=== PATIENT | female | born 1960 | race Caucasian/White ===

== ENCOUNTER → 2018-10-28 15:24 | Outpatient (CLI) | payer OTHER, SELFPAY ==
--- NOTE | 2018-10-28 | DI.RAD.S_ITS ---
PROCEDURE: XR KNEE LT 3V INDICATIONS: LEFT KNEE PAIN TECHNIQUE: 3 views of the knee were acquired. COMPARISON: [facility], , KNEE 1-2 VIEWS LEFT, 10/25/2007, 11:31. FINDINGS: Bones: No fractures or dislocations. No suspicious bony lesions. There is mild to moderate tricompartmental joint space narrowing and periarticular osteophytes. Soft tissues: No joint effusion. Chondrocalcinosis. IMPRESSION: 1. Chondrocalcinosis. Differential diagnoses include CPPD, hypercalcemia and hyperparathyroidism. 2. Mild to moderate degenerative joint disease. Dictated by: Ravinder Brian M.D. on 10/28/2018 at 17:27 Approved by: Ravinder Brian M.D. on 10/28/2018 at 17:29
== END ==
PROVIDERS: PCP Family Medicine; Visit Provider Family Medicine
DX: M25.562 Pain in left knee (principal); M11.262 Other chondrocalcinosis, left knee; M17.12 Unilateral primary osteoarthritis, left knee
CPT/HCPCS: 73562

== ENCOUNTER → 2018-11-24 09:23 | Outpatient (CLI) | payer OTHER, SELFPAY ==
--- NOTE | 2018-11-24 | DI.MG.S_ITS ---
BILATERAL DIGITAL SCREENING MAMMOGRAM 3D/2D WITH CAD: 11/24/2018 CLINICAL: Routine screening. Family history of breast cancer. Comparison is made to exams dated: 11/25/2017 mammogram, 09/18/2015 mammogram, 03/14/2015 mammogram, and 02/28/2015 mammogram - [facility]. There are scattered fibroglandular elements in both breasts. Current study was also evaluated with a Computer Aided Detection (CAD) system. No significant masses, calcifications, or other findings are seen in either breast. There has been no significant interval change. IMPRESSION: NEGATIVE There is no mammographic evidence of malignancy. A 1 year screening mammogram is recommended. This exam was interpreted at Station ID: [id number]. NOTE: For mammograms, a report in lay terms will be sent to the patient. Approximately 15% of breast malignancies will not be visualized mammographically. In the management of a palpable breast mass, a negative mammogram must not discourage biopsy of a clinically suspicious lesion. Electronically Signed By: Felicitas sousa/darwin:11/24/2018 10:14:55 letter sent: Normal Exam ACR BI-RADS Category 1: Negative 3341F
== END ==
PROVIDERS: PCP Family Medicine; Visit Provider Family Medicine
DX: Z12.31 Encounter for screening mammogram for malignant neoplasm of breast (principal); Z80.3 Family history of malignant neoplasm of breast
CPT/HCPCS: 77063; 77067

== ENCOUNTER → 2018-12-03 15:35 | Outpatient (CLI) | payer OTHER, SELFPAY ==
--- NOTE | 2018-12-03 | DI.MRI.S_ITS ---
PROCEDURE: MR KNEE LT WO CON INDICATIONS: Pain in left knee TECHNIQUE: Noncontrast sagittal PD fast spin echo and T2 fast spin echo with fat saturation, sagittal 3-D FLASH with fat saturation; coronal T1 spin echo and PD fast spin echo with fat saturation, and axial PD fast spin echo with fat saturation through the knee. COMPARISON: [facility], MR, LOWER EXTREM. JNT WO CONTRAST, 11/08/2007, 9:31. FINDINGS: Image quality: Excellent. Menisci: Lateral meniscus appears intact. Marked truncation of the free margin of the body of the medial meniscus. There is also internal signal change which extends to the undersurface in keeping with tear. Cruciate ligaments: The anterior and posterior cruciate ligaments appear intact. Medial structures: The medial collateral ligament appears intact. Minimal semimembranosus insertional tendinopathy appears unchanged. Visualized portions of the pes anserinus tendons appear normal. No abnormal bursal fluid. Lateral structures: The lateral collateral ligament, long and short heads of the biceps femoris tendon appear intact. The popliteus tendon appears normal; the popliteofibular ligament appears intact. The posterosuperior and anteroinferior popliteomeniscal fascicles appear intact. The arcuate and fabellofibular ligaments appear intact, on either side of the lateral inferior geniculate artery. Iliotibial band appears normal. Anterior structures: Prepatellar and superficial infrapatellar subcutaneous edema/fluid. The quadriceps tendon intact. Mild diffuse patellar tendinopathy. Patellar alignment is normal. No femoral trochlear dysplasia or ventral trochlear prominence. No edema in the infrapatellar fat pad. Bones and cartilage: No focal marrow contusion or discrete low signal fracture line. Within the medial compartment, diffuse partial-thickness loss of femoral and tibial articular cartilage. No focal articular cartilage defect. Within the lateral compartment, intrasubstance signal change at the central weightbearing tibial cartilage without focal defect. There is diffuse partial thickness loss of the femoral cartilage. Within the patellofemoral compartment, near full thickness loss of the patellar articular cartilage diffusely with subchondral marrow signal changes. Femoral trochlear cartilage appears grossly intact. Joint space: Trace joint effusion. Small Hemphill's cyst measuring approximately 3 cm in the cephalocaudad dimension. No specific evidence of intra-articular loose body. IMPRESSION: Medial meniscal tear involving the body. This is mildly progressed since the prior study dated 11/08/07, with greater truncation of the free margin. Diffuse joint degeneration as above, although interval progression within the patellofemoral compartment. Small Hemphill's cyst, minimally increased in size. Unchanged minimal insertional semimembranosus tendinopathy. Dictated by: Bhupinder Izquierdo M.D. on 12/03/2018 at 16:36 Approved by: Bhupinder Izquierdo M.D. on 12/03/2018 at 16:47
== END ==
PROVIDERS: PCP Family Medicine; Visit Provider Family Medicine
DX: M25.562 Pain in left knee (principal); S83.242A Other tear of medial meniscus, current injury, left knee, initial encounter; M17.12 Unilateral primary osteoarthritis, left knee; M71.22 Synovial cyst of popliteal space [Baker], left knee
CPT/HCPCS: 73721

== ENCOUNTER → 2020-03-27 16:33 | Outpatient (CLI) | payer OTHER, SELFPAY ==
--- NOTE | 2020-03-27 | DI.MG.S_ITS ---
BILATERAL DIGITAL SCREENING MAMMOGRAM 3D/2D WITH CAD: 03/27/2020 CLINICAL: Routine screening. Family history of breast cancer. Comparison is made to exams dated: 11/24/2018 mammogram, 11/25/2017 mammogram, 09/18/2015 mammogram, and 02/28/2015 mammogram - [facility]. There are scattered fibroglandular elements in both breasts. Current study was also evaluated with a Computer Aided Detection (CAD) system. There is a focal asymmetry with grouped punctate calcifications in the left breast at 12 o'clock posterior depth. No other significant masses, calcifications, or other findings are seen in either breast. IMPRESSION: INCOMPLETE: NEEDS ADDITIONAL IMAGING EVALUATION The focal asymmetry in the left breast is indeterminate. Spot magnification views as well as additional views with possible ultrasound are recommended. This exam was interpreted at Station ID: [id number]. NOTE: For mammograms, a report in lay terms will be sent to the patient. Approximately 15% of breast malignancies will not be visualized mammographically. In the management of a palpable breast mass, a negative mammogram must not discourage biopsy of a clinically suspicious lesion. Electronically Signed By: Felicitas sousa/darwin:03/28/2020 08:55:07 letter sent: Additional Imaging Needed ACR BI-RADS Category 0: Incomplete 3340F
== END ==
PROVIDERS: PCP Family Medicine; Referring Provider Family Medicine; Visit Provider Family Medicine
DX: Z12.31 Encounter for screening mammogram for malignant neoplasm of breast (principal); Z80.3 Family history of malignant neoplasm of breast
CPT/HCPCS: 77063; 77067

== ENCOUNTER → 2020-04-24 15:01 | Outpatient (CLI) | payer OTHER, SELFPAY ==
--- NOTE | 2020-04-24 15:13 | DI.MG.S_ITS ---
Patient Name: YANI WIGGINS date: 1960 Sex: F Attending Physician: Tray Indications: Date: 04/24/2020 15:04 At the request of: AGAPITO BLISS Procedure: MM special view LT UNILATERAL LEFT DIGITAL DIAGNOSTIC MAMMOGRAM 3D/2D WITH ADDITIONAL VIEWS: 04/24/2020 CLINICAL: Additional evaluation requested from prior study. Comparison is made to exams dated: 03/27/2020 mammogram, 11/24/2018 mammogram, 11/25/2017 mammogram, 09/18/2015 mammogram, and 03/14/2015 mammogram - [facility]. There are scattered fibroglandular elements in left breast. There is a 0.5 cm oval focal asymmetry with grouped punctate calcifications in the left breast at 1 o'clock posterior depth. This may correspond to the focal asymmetry seen in 2014 that was described as 3:00 o'clock. This appears more prominent and the group calcifications are new. No other significant masses or calcifications are seen in the breast. IMPRESSION: INCOMPLETE: NEEDS ADDITIONAL IMAGING EVALUATION The 0.5 cm oval focal asymmetry in the left breast is indeterminate. A targeted ultrasound is recommended and will immediately follow. This exam was interpreted at Station ID: [id number]. NOTE: For mammograms, a report in lay terms will be sent to the patient. Approximately 15% of breast malignancies will not be visualized mammographically. In the management of a palpable breast mass, a negative mammogram must not discourage biopsy of a clinically suspicious lesion. Electronically Signed By: Alonso Giron M.D. slc/:04/24/2020 16:44:47 Continued Report - Page 2 of 2 Patient Name: YANI WIGGINS date: 1960 Sex: F Attending Physician: Tray Indications: Date: 04/24/2020 15:04 At the request of: AGAPITO BLISS Procedure: MM special view LT ACR BI-RADS Category 0: Incomplete 3340F
--- NOTE | 2020-04-24 15:52 | DI.US.S_ITS ---
Patient Name: YANI WIGGINS date: 1960 Sex: F Attending Physician: Tray Indications: Date: 04/24/2020 15:46 At the request of: AGAPITO BLISS Procedure: US breast LT limited LIMITED ULTRASOUND OF LEFT BREAST: 04/24/2020 CLINICAL: Patient returns today to evaluate a focal asymmetry in the left breast. Comparison is made to exams dated: 04/24/2020 mammogram, 03/27/2020 mammogram, 11/24/2018 mammogram, 03/14/2015 mammogram, 03/14/2015 ultrasound, and 09/18/2015 mammogram - [facility]. Color flow and real-time ultrasound of the left breast 12-1 o'clock region were performed. Ferris scale images of the real-time examination were reviewed. There is a 0.9 cm x 0.5 cm x 0.4 cm oval cyst in the left breast at 12 o'clock posterior depth 4 cm from the nipple. This oval cyst is hypoechoic with a well-defined boundary and no posterior acoustic shadowing or enhancement. This correlates with mammography findings. There are related micro calcifications. Color flow imaging demonstrates that there is no vascularity present. IMPRESSION: PROBABLY BENIGN The 0.9 cm x 0.5 cm x 0.4 cm oval cyst in the left breast is most consistent with a complicated cyst and is probably benign. A follow-up mammogram and an ultrasound in 6 months is recommended to demonstrate stability. Exam results conveyed to the patient. This exam was interpreted at Station ID: [id number]. Electronically Signed By: Alonso Giron M.D. slc/:04/24/2020 16:37:16 letter sent: Followup Recommended Ultrasound BI-RADS: 3 Probably benign Continued Report - Page 2 of 2 Patient Name: YANI WIGGINS date: 1960 Sex: F Attending Physician: Tray Indications: Date: 04/24/2020 15:46 At the request of: AGAPITO BLISS Procedure: US breast LT limited
== END ==
PROVIDERS: PCP Family Medicine; Referring Provider Family Medicine; Visit Provider Family Medicine
DX: R92.8 Other abnormal and inconclusive findings on diagnostic imaging of breast (principal); R92.1 Mammographic calcification found on diagnostic imaging of breast; N60.02 Solitary cyst of left breast
CPT/HCPCS: 76642; 77065; G0279

== ENCOUNTER → 2020-10-25 09:06 | Outpatient (CLI) | payer OTHER, SELFPAY ==
--- NOTE | 2020-10-25 | DI.MG.S_ITS ---
UNILATERAL LEFT DIGITAL DIAGNOSTIC MAMMOGRAM 3D/2D SHORT-TERM FOLLOW-UP: 10/25/2020 CLINICAL: Short term follow up for the left breast. Comparison is made to exams dated: 04/24/2020 ultrasound, 04/24/2020 mammogram, and 03/27/2020 mammogram - [facility]. There are scattered fibroglandular elements in left breast. There is an oval low density focal asymmetry with an indistinct margin and grouped fine calcifications in the left breast at 1 o'clock posterior depth. This is increased in size. No other significant masses or calcifications are seen in the breast. IMPRESSION: INCOMPLETE: NEEDS ADDITIONAL IMAGING EVALUATION The oval low density focal asymmetry in the left breast is indeterminate. An ultrasound is recommended. Ultrasound will be performed immediately following the current exam. This exam was interpreted at Station ID: [id number]. NOTE: For mammograms, a report in lay terms will be sent to the patient. Approximately 15% of breast malignancies will not be visualized mammographically. In the management of a palpable breast mass, a negative mammogram must not discourage biopsy of a clinically suspicious lesion. Electronically Signed By: Johnathan José M.D. ddp/:10/25/2020 09:45:56 ACR BI-RADS Category 0: Incomplete 3340F
--- NOTE | 2020-10-25 | DI.US.S_ITS ---
ULTRASOUND OF LEFT BREAST: 10/25/2020 CLINICAL: 6 month follow-up of cysts. Comparison is made to exams dated: 10/25/2020 mammogram, 04/24/2020 ultrasound, 04/24/2020 mammogram, 03/27/2020 mammogram, 11/24/2018 mammogram, and 11/25/2017 mammogram - [facility]. Color flow and real-time ultrasound of the left breast were performed on the areas of interest. There is a 0.6 cm x 0.3 cm x 0.5 cm cluster of oval cysts in the left breast at 2 o'clock middle depth. This cluster of oval cysts is hypoechoic with internal echoes and posterior acoustic enhancement. This correlates with mammography findings. Color flow imaging demonstrates that there is no vascularity present. The previously described 1 cm x 0.3 cm x 0.5 cm oval isoechoic region with indistinct margins in the left breast at 12 o'clock posterior depth is not significantly changed. Findings likely represent fibroglandular tissue. IMPRESSION: PROBABLY BENIGN The 0.6 cm x 0.3 cm x 0.5 cm cluster of oval cysts in the left breast at 2 o'clock middle depth is probably benign. Follow-up mammogram and ultrasound in 6 months is recommended. The 1 cm x 0.3 cm x 0.5 cm oval area of fibroglandular tissue in the left breast at 12 o'clock posterior depth is benign. A follow-up mammogram and an ultrasound in 6 months are recommended to demonstrate stability. This exam was interpreted at Station ID: [id number]. Electronically Signed By: Johnathan varela/:10/25/2020 11:42:55 letter sent: Followup Recommended Ultrasound BI-RADS: 3 Probably benign
== END ==
PROVIDERS: PCP Family Medicine; Referring Provider Family Medicine; Visit Provider Family Medicine
DX: R92.8 Other abnormal and inconclusive findings on diagnostic imaging of breast (principal); N60.02 Solitary cyst of left breast
CPT/HCPCS: 76642; 77065; G0279

== ENCOUNTER → 2021-02-15 08:34 | Outpatient (CLI) | payer OTHER, SELFPAY ==
[2021-02-15 10:42] LABS: COVID19 -Nasal RAPID Negative (Negative)
== END ==
PROVIDERS: PCP Family Medicine; Visit Provider Specialist
DX: Z20.822 Contact with and (suspected) exposure to COVID-19 (principal)
CPT/HCPCS: 87635; C9803

== ENCOUNTER 2021-02-18 11:52 | Day surgery (SDC) | payer OTHER, SELFPAY ==
[2021-02-18] VITALS (7 sets, daily range): BP systolic 110–140; BP diastolic 44–75; PULSE 62–74; RESP 11–16; TEMP 36.2–36.7; O2SAT 63–99; BMI 28.2
--- NOTE | 2021-02-18 12:55 | PM.HP.1 ---
History of Present Illness History of Present Illness Date Patient Seen: 02/18/21 Time Patient Seen: 12:55 Chief complaint: DX COLONOSCOPY Narrative: screening colonoscopy. No family history or gi symptoms of concern. Retire [employer] Patient History Surgical History (Updated 02/18/21 @ 12:36 by Linda Gill RN) H/O: hysterectomy Family & Social History Social History: household members spouse Tobacco & Substance use: Smoking Status Never smoker alcohol intake current alcohol intake frequency a few times a week Substance Use Type does not use Meds Home Medications and Allergies Home Medications Medication Instructions Recorded Confirmed Type multivitamin 1 tab PO DAILY 02/18/21 02/18/21 History Allergies Allergy/AdvReac Type Severity Reaction Status Date / Time Sulfa (Sulfonamide Allergy Intermediate HIVES Verified 02/18/21 12:35 Antibiotics) Review of Systems Review of Systems ROS: Yes All systems reviewed with the patient and are negative except as otherwise documented Exam Vital Signs (past 8 hours): - 02/18/21 12:12 Temperature 97.1 F L Pulse Rate 68 Respiratory Rate 16 Blood Pressure 140/71 Pulse Oximetry 99 Oxygen Delivery Method Room Air Const General: cooperative and healthy appearing Nutritional Appearance: average body habitus Orientation: alert and awake HENMT Head: normal to inspection Nose: external nose normal Face and sinus: normal facial exam Eyes Sclera: sclerae normal Neck Neck: trachea midline Chest Chest: normal inspection of the chest Resp Effort & Inspection: normal respiratory effort and able to speak in complete sentences Auscultation: clear to auscultation bilaterally Cardio Rate: regular rate Rhythm: regular rhythm GI Inspection: normal to inspection Neuro General: patient alert and patient oriented x3 Assessment & Plan Assessment & Plan narrative: colon cancer screeing with colonoscopy using moderate sedation COVID-19 COVID-19 status: Negative Time Spent With Patient Time with patient: less than 15 minutes
[2021-02-18] MEDS: LACTATED RINGERS 1,000 ML 100 ML IV (13:00)
[2021-02-18] MEDS: fentaNYL 250 MCG/5 ML INJ IV (13:09)
[2021-02-18] MEDS: MIDAZOLAM 5 MG/5 ML VIAL IV (13:16)
--- NOTE | 2021-02-18 13:22 | PM.OP.ENDO ---
Operative Date/Time/Diagnoses Date of procedure: 02/18/21 Time of procedure: 13:22 Pre-op diagnosis: screening colonoscopy Post-op diagnosis: same Procedure & Clinicians Study performed: colonoscopy with moderate sedation Same procedure as scheduled: Yes Indications: colon cancer screening Surgeon: Ghislaine Hathaway Procedure Notes SCOAP/Timeout: done Procedure in detail: Preop diagnosis: Colon cancer screening Postop diagnosis: Same Operative procedure: Screening colonoscopy with moderate sedation Surgeon: Jolie Hathaway MD Findings: Normal mucosa, no polyps, no diverticulosis Procedure: Patient placed in the lateral position. Rectal exam is performed showing normal tone no masses. Colonoscope was inserted into the rectum and advanced to the ileocecal valve with minimal difficulty. Insufflation and extraction of the scope to include a retroflexed in the rectum had the above findings Impression: No polyps, no diverticulosis. Plan: Repeat colonoscopy 10 years unless otherwise indicated change in family history or clinical condition Scope withdrawal time: 4 Sedation minutes: 17 Specimen(s): none sent Complications: none Impression: no polyps, no diverticulosis Post-procedure Recommendations: Colonscopy in 10 years Follow up: as needed Disposition: PACU
--- NOTE | 2021-02-18 14:02 | SUR.PHASEI ---
Slow to wake up, tolerated juice, no pain, to OPD, stable.
== END 2021-02-18 15:00 | disposition home or self-care (01) ==
PROVIDERS: PCP Family Medicine; Referring Provider Surgery; Visit Provider Surgery
PROC: 0DJD8ZZ Inspection of Lower Intestinal Tract, Via Natural or Artificial Opening Endoscopic (ICD-10-PCS; CPT 45378; principal; 2021-02-18 13:00)
DX: Z12.11 Encounter for screening for malignant neoplasm of colon (principal)
CPT/HCPCS: 45378; 99152; J2250; J3010

== ENCOUNTER → 2021-02-22 14:17 | Outpatient (CLI) | payer OTHER, SELFPAY ==
--- NOTE | 2021-02-22 14:24 | DI.RAD.S_ITS ---
PROCEDURE: XR KNEE RT 3V INDICATIONS: right knee pain. Pickleball injury TECHNIQUE: 3 views of the knee were acquired. COMPARISON: [facility], CR, XR KNEE LT 3V, 10/28/2018, 15:29. FINDINGS: Bones: No fractures or dislocations. No suspicious bony lesions. Lateral and patellofemoral compartmental joint space narrowing with small marginal osteophyte present. Soft tissues: No joint effusion. No suspicious soft tissue calcifications. IMPRESSION: Osteoarthritis and small joint effusion without fracture or subluxation. Dictated by: Chester Espitia M.D. on 02/22/2021 at 14:04 Approved by: Chester Espitia M.D. on 02/22/2021 at 14:05
== END ==
PROVIDERS: PCP Family Medicine; Referring Provider Family Medicine; Visit Provider Family Medicine
DX: M25.561 Pain in right knee (principal); S89.91XA Unspecified injury of right lower leg, initial encounter; M17.11 Unilateral primary osteoarthritis, right knee; M25.461 Effusion, right knee; X58.XXXA Exposure to other specified factors, initial encounter
CPT/HCPCS: 73562

== ENCOUNTER → 2022-01-07 16:08 | Outpatient (CLI) | payer OTHER, SELFPAY ==
--- NOTE | 2022-01-07 | DI.RAD.S_ITS ---
PROCEDURE: XR KNEE RT 3V INDICATIONS: M76.891, M23.90 TECHNIQUE: 3 views of the knee were acquired. COMPARISON: [facility], CR, XR KNEE RT 3V, 02/22/2021, 14:34. FINDINGS: Bones: No acute fracture or dislocation. There is moderate right medial femorotibial compartment narrowing and small tricompartmental osteophytes. Soft tissues: No joint effusion. No suspicious soft tissue calcifications. IMPRESSION: Mild osteoarthritis of the right knee. No acute radiographic findings. Dictated by: Felicitas Tobar M.D. on 01/07/2022 at 16:42 Approved by: Felicitas Tobar M.D. on 01/07/2022 at 16:45
--- NOTE | 2022-01-07 | DI.RAD.S_ITS ---
PROCEDURE: XR HIP W PEL IF DONE RT 2V INDICATIONS: M76.891, M23.90 TECHNIQUE: AP pelvis with lateral view(s) of the right hip(s). COMPARISON: [facility], , HIP 2V RIGHT, 12/09/2013, 16:19. FINDINGS: Bones: No fractures or dislocations. Pelvic ring appears intact. No suspicious bony lesions. Moderate bilateral degenerative hip joint space narrowing. Minimal periarticular osteophytes. No erosions. Soft tissues: The visualized bowel gas pattern is normal. No suspicious soft tissue calcifications. IMPRESSION: Moderate bilateral hip osteoarthritis. Dictated by: Yudi Espinosa M.D. on 01/07/2022 at 16:39 Approved by: Yudi Espinosa M.D. on 01/07/2022 at 16:40
== END ==
PROVIDERS: PCP Family Medicine; Referring Provider Family Medicine; Visit Provider Family Medicine
DX: M76.891 Other specified enthesopathies of right lower limb, excluding foot (principal); M23.90 Unspecified internal derangement of unspecified knee; M17.11 Unilateral primary osteoarthritis, right knee; M16.0 Bilateral primary osteoarthritis of hip
CPT/HCPCS: 73502; 73562

== ENCOUNTER → 2022-11-28 | Outpatient (CLI) | payer OTHER, SELFPAY ==
--- NOTE | 2022-11-28 | DI.RAD.S_ITS ---
Bone Density Report Name: YANI WIGGINS Age: 62 Sex: Female Ethnicity: White Date of : 1960 Indication: postmenopausal; screening for osteoporosis; Referring Provider: AGAPITO BLISS Study: Bone densitometry was performed. Exam Date: November 28, 2022 Accession number: [id number] Bone Density: Region BMD T-score Z-score Classification AP Spine(L1-L4) 0.927 -1.1 0.4 Osteopenia Femoral Neck (Left) 0.846 0.0 1.3 Normal Total Hip (Left) 1.005 0.5 1.6 Normal Femoral Neck (Right) 0.761 -0.8 0.6 Normal Total Hip (Right) 0.944 0.0 1.1 Normal Total Hip Mean 0.975 0.3 1.4 Normal World Health Organization criteria for BMD impression classify patients as: Normal (T-score at or above -1.0), Osteopenia (T-score between -1.0 and -2.5), or Osteoporosis (T-score at or below -2.5). 10-year Fracture Risk(1): Major Osteoporotic Fracture 7.1% Hip Fracture 0.3% Reported Risk Factors: [place] (), Neck BMD=0.761, BMI=28.9 (1) FRAX(R) Version 3.08. Fracture probability calculated for an untreated patient. Fracture probability may be lower if the patient has received treatment. Previous Exams: -- Region Exam Age BMD T-score BMD Change BMD Change Date g/cm2 vs Baseline vs Previous -- AP Spine (L1-L4) 11/28/2022 62 0.927 -1.1 -0.084 (-8.3%)# -0.084 (-8.3%)# 04/12/2009 49 1.010 -0.3 Total Hip(Left) 11/28/2022 62 1.005 0.5 0.022 (2.3%)# 0.022 (2.3%)# 04/12/2009 49 0.983 0.3 Total Hip(Right) 11/28/2022 62 0.944 0.0 -0.041 (-4.2%)# -0.041 (-4.2%)# 04/12/2009 49 0.986 0.4 -- *Denotes significance at 95% confidence level, LSC for AP Spine = 0.022 g/cm2, LSC for Total Hip = 0.027 g/cm2 # Denotes dissimilar scan types or analysis methods Impression: The patient has low bone mass, based on the Total Spine T-score. The patient has an estimated ten-year risk of hip fracture of 0.3% and an estimated ten-year risk of major fracture of 7.1%, based on the WHO FRAX algorithm. No significant bone loss was observed. Discussion: BONE DENSITY IS LOW AT ONE OR MORE SKELETAL SITES. This patient's lowest T-score is low at one or more skeletal sites. It meets the World Health Organization's (WHO) criteria for low bone mass (T-score between -1.0 and -2.5). The patient's 10-year risk of fracture as calculated by FRAX is less than the threshold where pharmacological therapy is recommended by the National Osteoporosis Foundation (NOF). However, all treatment decisions require clinical judgment and consideration of individual patient factors, including patient preferences, comorbidities, previous drug use, risk factors not captured in the FRAX model (e.g., frailty, falls, vitamin D deficiency, increased bone turnover, interval significant decline in bone density) and possible under or overestimation of fracture risk by FRAX. The patient should follow a healthful lifestyle (good nutrition with adequate calcium and vitamin D, and appropriate weight-bearing exercise). Follow-Up: Consider repeating this study in 2 to 3 years to reassess this patient's status, or sooner if there is some new clinical indication. Reported by: GORGE KONG M.D. on 11/28/2022 2:51:00 PM.
== END ==
LOC: RAD 14:29
PROVIDERS: PCP Family Medicine; Referring Provider Family Medicine; Visit Provider Family Medicine
DX: Z13.820 Encounter for screening for osteoporosis (principal); Z78.0 Asymptomatic menopausal state; M85.88 Other specified disorders of bone density and structure, other site
CPT/HCPCS: 77080

== ENCOUNTER → 2022-12-01 08:23 | Outpatient (CLI) | payer OTHER, SELFPAY ==
--- NOTE | 2022-12-01 | DI.US.S_ITS ---
LIMITED ULTRASOUND OF LEFT BREAST: 12/01/2022 CLINICAL: 6 (24+) month follow-up of cysts. Comparison is made to exams dated: 12/01/2022 mammogram, 10/25/2020 ultrasound, 10/25/2020 mammogram, 04/24/2020 ultrasound, and 04/24/2020 mammogram - [facility]. Real-time and continuous wave Doppler ultrasound of the left breast were performed. IMPRESSION: NEGATIVE There is no sonographic evidence of malignancy. There is no abnormality seen in the left breast to correspond with the mammography finding and previous ultrasound finding. Return to annual mammogram screening schedule is recommended. This exam was interpreted at Station ID: [id number]. Electronically Signed By: Roderick Mitchell M.D. lc/:12/01/2022 09:48:15 letter sent: Normal Exam Ultrasound BI-RADS: 1 Negative
--- NOTE | 2022-12-01 | DI.MG.S_ITS ---
BILATERAL DIGITAL DIAGNOSTIC MAMMOGRAM 3D/2D: 12/01/2022 CLINICAL: Late short follow up, due bilateral. Family history of breast cancer. Comparison is made to exams dated: 10/25/2020 mammogram, 04/24/2020 mammogram, 03/27/2020 mammogram, 11/25/2017 mammogram, and 11/24/2018 mammogram - [facility]. There are scattered areas of fibroglandular density in both breasts (category b / 25%-50% glandular tissue). There is a stable oval low density focal asymmetry with an indistinct margin in the left breast at 1 o'clock posterior depth. Prior calcifications are less conspicuous. No other significant masses, calcifications, or other findings are seen in either breast. IMPRESSION: INCOMPLETE: NEEDS ADDITIONAL IMAGING EVALUATION The stable oval low density focal asymmetry in the left breast is indeterminate. An ultrasound is recommended. Based on the Tyrer Cuzick model (a risk assessment model) the patient's lifetime risk is 17.5% and her 10 year risk is 7.5%. According to the ACR, ACS, and NCCN guidelines, an annual breast MRI exam along with mammogram is recommended if the patient's lifetime risk is 20% or greater. This exam was interpreted at Station ID: [id number]. NOTE: For mammograms, a report in lay terms will be sent to the patient. Approximately 15% of breast malignancies will not be visualized mammographically. In the management of a palpable breast mass, a negative mammogram must not discourage biopsy of a clinically suspicious lesion. Electronically Signed By: Roderick Mitchell M.D. lc/:12/01/2022 09:46:06 ACR BI-RADS Category 0: Incomplete 3340F
== END ==
PROVIDERS: PCP Family Medicine; Referring Provider Family Medicine; Visit Provider Family Medicine
DX: R92.8 Other abnormal and inconclusive findings on diagnostic imaging of breast (principal); N60.02 Solitary cyst of left breast
CPT/HCPCS: 76642; 77066; G0279

== ENCOUNTER → 2024-02-25 12:52 | Outpatient (CLI) | payer OTHER, SELFPAY ==
--- NOTE | 2024-02-25 12:53 | DI.MG.S_ITS ---
BILATERAL DIGITAL SCREENING MAMMOGRAM 3D/2D WITH CAD: 02/25/2024 CLINICAL: Routine screening. Family history of breast cancer. Comparison is made to exams dated: 12/01/2022 mammogram, 03/27/2020 mammogram, and 11/24/2018 mammogram - [facility]. There are scattered areas of fibroglandular density in both breasts (category b / 25%-50% glandular tissue). Current study was also evaluated with a Computer Aided Detection (CAD) system. No significant masses, calcifications, or other findings are seen in either breast. There has been no significant interval change. IMPRESSION: NEGATIVE There is no mammographic evidence of malignancy. A 1 year screening mammogram is recommended. Based on the Tyrer Cuzick model (a risk assessment model) the patient's lifetime risk is 16.6% and her 10 year risk is 7.6%. According to the ACR, ACS, and NCCN guidelines, an annual breast MRI exam along with mammogram is recommended if the patient's lifetime risk is 20% or greater. This exam was interpreted at Station ID: [id number]. NOTE: For mammograms, a report in lay terms will be sent to the patient. Approximately 15% of breast malignancies will not be visualized mammographically. In the management of a palpable breast mass, a negative mammogram must not discourage biopsy of a clinically suspicious lesion. Electronically Signed By: Roderick coronado/darwin:02/25/2024 14:28:05 letter sent: Normal Exam ACR BI-RADS Category 1: Negative 3341F
== END ==
PROVIDERS: PCP Family Medicine; Referring Provider Family Medicine; Visit Provider Family Medicine
DX: Z12.31 Encounter for screening mammogram for malignant neoplasm of breast (principal); R92.323 Mammographic fibroglandular density, bilateral breasts
CPT/HCPCS: 77063; 77067

== ENCOUNTER → 2024-03-15 15:04 | Outpatient (CLI) | payer OTHER, SELFPAY ==
[2024-03-15 15:59] LABS: Add Manual Diff / Slide Review NO; Basophils Absolute Auto 0 /uL (0-100); Basophils Percent Auto 0.4 % (0-2); Eosinophils Absolute Auto 200 /uL (0-450); Eosinophils Percent Auto 2.6 % (2-4); Hematocrit 40.9 % (36-46); Hemoglobin 13.9 g/dL (12.0-16.0); Lymphocytes Absolute Auto 2200 /uL (1100-4500); Lymphocytes Percent Auto 23.6 % (25-40); Mean Corpuscular Hemoglobin 28.1 PG (26-34); Mean Corpuscular Volume 82.7 fL (80-100); Monocytes Absolute Auto 600 /uL (0-900); Monocytes Percent Auto 6.8 % (3-14); Neutrophils Absolute Auto 6300 /uL (1500-7000); Neutrophils Percent Auto 66.6 % (50-75); Platelet Count 296 X10^3/uL (150-400); Red Blood Cell Count 4.95 X10^6/uL (4.0-5.2); Red Cell Distribution Width 13.4 % (11.6-14.8); White Blood Cell Count 9.5 X10^3/uL (4.5-11.0)
[2024-03-15 17:03] LABS: Alanine Aminotransferase 18 IU/L (<35); Albumin 4.5 g/dL (3.5-5.0); Albumin Globulin Ratio 1.5 (1.0-2.8); Alkaline Phosphatase 85 U/L (38-126); Aspartate Aminotransferase 23 IU/L (14-36); BUN Creatinine Ratio 25.3 (6-22); Bilirubin Total 0.4 mg/dL (0.2-1.3); Blood Urea Nitrogen 21 mg/dL (7-17); Carbon Dioxide 28 mmol/L (22-32); Chloride 105 mmol/L (98-107); Estimated Glomerular Filt Rate > 60 mL/min (>60); Globulin 3.1 g/dL (1.7-4.1); Glucose 83 mg/dL (80-110); HEMOLYSIS < 15 (0-50); Potassium 4.7 mmol/L (3.4-5.1); Sodium 140 mmol/L (137-145); Total Protein 7.6 g/dL (6.3-8.2)
[2024-03-15 17:38] LABS: Ferritin 82 ng/mL (11-264)
[2024-03-15 18:02] LABS: Iron 68 ug/dL (37-170)
[2024-03-15 18:21] LABS: Free T4, Direct Thyroxine 0.95 ng/dL (0.78-2.19)
[2024-03-15 18:54] LABS: Vitamin B12 314 pg/mL (239-931)
== END ==
LOC: LAB 15:05
PROVIDERS: PCP Family Medicine; Referring Provider Dermatology; Visit Provider Dermatology
DX: L65.9 Nonscarring hair loss, unspecified (principal)
CPT/HCPCS: 36415; 80053; 82607; 82728; 83540; 84439; 84443; 85025; 86038

== ENCOUNTER → 2024-06-25 08:17 | Outpatient (CLI) | payer OTHER, SELFPAY ==
[2024-06-25 10:06] LABS: Add Manual Diff / Slide Review NO; Basophils Absolute Auto 0 /uL (0-100); Basophils Percent Auto 0.5 % (0-2); Eosinophils Absolute Auto 300 /uL (0-450); Eosinophils Percent Auto 4.7 % (2-4); Hematocrit 44.2 % (36-46); Hemoglobin 14.7 g/dL (12.0-16.0); Lymphocytes Absolute Auto 1900 /uL (1100-4500); Lymphocytes Percent Auto 31.7 % (25-40); Mean Corpuscular HGB Conc 33.3 % (30-36); Mean Corpuscular Hemoglobin 27.9 PG (26-34); Mean Corpuscular Volume 83.7 fL (80-100); Monocytes Absolute Auto 400 /uL (0-900); Monocytes Percent Auto 7.6 % (3-14); Neutrophils Absolute Auto 3300 /uL (1500-7000); Neutrophils Percent Auto 55.5 % (50-75); Platelet Count 355 X10^3/uL (150-400); Red Blood Cell Count 5.28 X10^6/uL (4.0-5.2); Red Cell Distribution Width 13.3 % (11.6-14.8); White Blood Cell Count 5.9 X10^3/uL (4.5-11.0)
[2024-06-25 10:44] LABS: Alanine Aminotransferase 19 IU/L (<35); Albumin 4.4 g/dL (3.5-5.0); Albumin Globulin Ratio 1.4 (1.0-2.8); Alkaline Phosphatase 72 U/L (38-126); Aspartate Aminotransferase 25 IU/L (14-36); BUN Creatinine Ratio 16.5 (6-22); Bilirubin Total 0.6 mg/dL (0.2-1.3); Blood Urea Nitrogen 14 mg/dL (7-17); Calcium 9.9 mg/dL (8.4-10.2); Carbon Dioxide 27 mmol/L (22-32); Chloride 103 mmol/L (98-107); Cholesterol 252 mg/dL (140-199); Estimated Glomerular Filt Rate > 60 mL/min (>60); Globulin 3.2 g/dL (1.7-4.1); Glucose 87 mg/dL (80-110); HDL Cholesterol 55 mg/dL (40-60); HEMOLYSIS < 15 (0-50); LDL Cholesterol Calculated 165 mg/dL (<100); Potassium 5.1 mmol/L (3.4-5.1); Sodium 135 mmol/L (137-145); Total Protein 7.6 g/dL (6.3-8.2); Triglycerides 159 mg/dL (35-150)
[2024-06-25 11:09] LABS: Thyroid Stimulating Hormone 1.38 uIU/mL (0.47-4.68)
== END ==
PROVIDERS: PCP Family Medicine; Referring Provider Family Medicine; Visit Provider Family Medicine
DX: E78.00 Pure hypercholesterolemia, unspecified (principal); M85.88 Other specified disorders of bone density and structure, other site
CPT/HCPCS: 36415; 80053; 80061; 84443; 85025

== ENCOUNTER → 2024-07-05 07:45 | Outpatient (CLI) | payer OTHER, SELFPAY ==
--- NOTE | 2024-07-05 07:45 | DI.US.S_ITS ---
PROCEDURE: US PELVIC COMPLETE INDICATIONS: PAIN TECHNIQUE: Real-time scanning was performed of the pelvic organs, with image documentation. Additional endovaginal scanning was necessary due to incomplete visualization of the adnexal and endometrial structures by transabdominal scanning. COMPARISON: None. FINDINGS: Uterus: Uterus is absent . Ovaries: Ovaries are not seen. Other: Vaginal wall demonstrates a complex avascular nodule measuring 6 x 6 mm with a central area of bright echogenicity. No pathologic free abdominal or pelvic fluid. IMPRESSION: Status post hysterectomy. Ovaries not seen. Indeterminate small vaginal wall avascular nodule. Dictated by: Dominique Lamb M.D. on 07/05/2024 at 10:17 Approved by: Dominique Lamb M.D. on 07/05/2024 at 10:32
== END ==
PROVIDERS: PCP Family Medicine; Referring Provider Family Medicine; Visit Provider Family Medicine
DX: N89.8 Other specified noninflammatory disorders of vagina (principal); R10.2 Pelvic and perineal pain; Z90.710 Acquired absence of both cervix and uterus
CPT/HCPCS: 76830; 76856

== ENCOUNTER → 2025-07-13 07:51 | Outpatient (CLI) | payer OTHER, SELFPAY ==
--- NOTE | 2025-07-13 07:52 | DI.MG.S_ITS ---
MM screening mammo BI: 07/13/2025. BI-RADS: 1 CLINICAL: 65-year old female for bilateral screening mammogram. Tyrer-Cuzick lifetime risk of 9.4%. Current reported family history of breast cancer: maternal grandmother and mother. The patient is status-post reduction mammoplasty. PRIOR EXAMS 02/25/2024, 12/01/2022, 10/25/2020, 04/24/2020, MAMMOGRAPHY TECHNIQUE: 2D and 3D (tomosynthesis) digital mammographic views obtained, with additional images as needed for full coverage. Current study was also evaluated with a Computer Aided Detection (CAD) system. DENSITY B. There are scattered areas of fibroglandular density. MAMMOGRAPHY FINDINGS Bilateral: No suspicious mass, asymmetry, microcalcification, or other abnormality seen. IMPRESSION: * No evidence of malignancy. RECOMMENDATIONS Bilateral * Annual screening mammography. OVERALL ASSESSMENT CATEGORY BI-RADS-1: Negative. The [employer] recommends annual screening mammography beginning at age 40 for women with average risk of breast cancer. ELECTRONICALLY SIGNED: Daniel Mercedes M.D. on 07/14/2025 at 01:12:53 AM PT Interpreting Station ID: [id number]
== END ==
LOC: MAMMO 07:52
PROVIDERS: PCP Family Medicine; Referring Provider Family Medicine; Visit Provider Family Medicine
DX: Z12.31 Encounter for screening mammogram for malignant neoplasm of breast (principal); Z80.3 Family history of malignant neoplasm of breast
CPT/HCPCS: 77063; 77067